=== PATIENT | female | born 1955 | race Caucasian/White ===

== ENCOUNTER 2018-05-05 21:47 | Emergency (ER) | payer MEDICAID ==
[~2018-05-05] VITALS: Ht 175.3 cm; Wt 88.5 kg
[2018-05-05 21:52] VITALS: BP 132/78
--- NOTE | 2018-05-05 22:05 | NUR ---
patient bibself from home c/o rt wrist pain that is radiating to fingers with sharp/burning sensation for the past 10days. Per pt statement has a hx of carpal tunnel & RA. Pt sitting in bed comfortably, being seen by MD at bedside. No s/s of acute distress or sob noted. VS stable. Pt is a/ox4.
[2018-05-05] MEDS ORDERED: NAPROXEN 250 MG TABLET ONE (22:26)
[2018-05-05] MEDS ORDERED: NAPROXEN 250 MG TABLET PO ONE (22:30)
--- NOTE | 2018-05-05 22:33 | NUR ---
Patient discharged to home in stable condition. Written and verbal after care instructions given. Patient verbalizes understanding of instruction. Patient left on foot walking with steady gait. No s/s of acute distress or sob noted. VS stable.
== END 2018-05-05 22:40 | disposition home or self-care (01) ==
LOC: ER 21:49
DX: M65.4 Radial styloid tenosynovitis [de Quervain] (principal); I10 Essential (primary) hypertension; J45.909 Unspecified asthma, uncomplicated; J43.9 Emphysema, unspecified; E11.9 Type 2 diabetes mellitus without complications; G89.29 Other chronic pain; M06.9 Rheumatoid arthritis, unspecified
CPT/HCPCS: 29125; 99283; A4606; Z7610